=== PATIENT | female | born 1955 | race Caucasian/White ===

== ENCOUNTER 2016-09-28 09:19 | Day surgery (SDC) | payer OTHER | END 2016-09-28 09:50 | disposition home or self-care (01) | LOC: MDS 09:19 → MMU 09:23 → MDS 09:50 | PROVIDERS: ATTEND Internal Medicine Gastroenterology | DX: Z12.11 Encounter for screening for malignant neoplasm of colon (principal); Z53.8 Procedure and treatment not carried out for other reasons ==